=== PATIENT | female | born 1950 | race Caucasian/White ===

== ENCOUNTER 2022-11-02 08:40 | Outpatient (CLI) | payer OTHER, SELFPAY | END 2022-11-02 08:41 | disposition home or self-care (01) | PROVIDERS: PCP Internal Medicine; Referring Provider Internal Medicine; Visit Provider Internal Medicine | DX: E78.5 Hyperlipidemia, unspecified (principal) | CPT/HCPCS: 80053; 80061 ==

== ENCOUNTER 2024-06-18 08:48 | Outpatient (CLI) | payer OTHER, SELFPAY | END 2024-06-18 08:49 | disposition home or self-care (01) | PROVIDERS: PCP Internal Medicine; Visit Provider Family Medicine | DX: R30.0 Dysuria (principal); E78.5 Hyperlipidemia, unspecified; I10 Essential (primary) hypertension; E11.9 Type 2 diabetes mellitus without complications; Z13.29 Encounter for screening for other suspected endocrine disorder | CPT/HCPCS: 80048; 80061; 84443; 87086 ==

== ENCOUNTER 2024-07-20 09:34 | Emergency (ER) | payer OTHER, SELFPAY ==
[2024-07-20 09:37] VITALS: BP 161/103; PULSE 108; RESP 18; TEMP 36.4; O2SAT 93; BMI 28.3
[2024-07-20 10:01] LABS: Appearance Urine Slightly Cloudy (Clear); Bilirubin Urine Negative (Negative); Blood Urine 2+ (Negative); Color Urine Yellow (Yellow); Glucose Urine Negative (Negative); Ketones Urine Negative (Negative); Leukocyte Esterase Urine 2+ (Negative); Nitrite Urine Negative (Negative); Protein Urine Trace (Negative); Urobilinogen Urine 0.2 (0.2-1.0)
[2024-07-20 10:13] LABS: Amorphous Sediment Urine Moderate; Bacteria Urine Moderate; Squamous Epithelial Cell Urine Moderate (None-Few)
--- NOTE | 2024-07-20 11:06 | ED_ITS ---
HPI - General Adult General Date Seen: 07/20/24 Chief complaint: Abdominal Pain Stated complaint: kidney stone? UTI? Yeast infection? Time Seen by Provider: 07/20/24 11:06 History of Present Illness HPI narrative: 74 year old female presenting to the ER today with abdominal pain and nausea. She was awoken about 3:00 a.m. this morning with right lower quadrant abdominal pain and was nauseous. Similar to previous kidney stones. She was also recently treated for either a urinary tract infection and yeast infection. Per medical record she was seen in the primary care clinic on 06/18. Per those notes ... She had concern for possible UTI. She also has a history of kidney cancer and had a nephrectomy in 2018. She has type 2 diabetes not currently on meds. History of high cholesterol. History of hypertension. Urinalysis showed 10-25 WBC. Treated with Bactrim b.i.d. for 7 days. Urine culture grew mixed jeff. She says her vaginal itching never really got better on the antibiotics. About 3 days ago she went to the pharmacy and bought some over counter Monistat cream and has been using that. She says finally her vaginal itching is getting better. She still has some urgency to urinate but no other dysuria, suprapubic pain She was awoken about 3:00 a.m. this morning with a new pain from her right flank down to her right lower quadrant of her abdomen. It is now associated with inability to urinate. She has not noticed any recent hematuria. No fever chills. No nausea or vomiting. She took ibuprofen this morning for the pain and is now much better. She says the pain currently is tolerable and she does not wanting more pain medication. She is worried because her symptoms are reminiscent of when she passed a kidney stone in 2018. She also has a history of kidney cancer and is status post a left nephrectomy (done by urology [facility]). In her surveillance follow-up CT scans urologists have mention that she has stones within the right kidney. She has not symptomaticly passed a stone since 2018. Related Data Previous Rx's ?Medication ?Instructions ?Recorded simvastatin 10 mg tablet 10 mg PO QHS Hyperlipidemia #90 12/26/23 tabs atenolol 50 mg tablet 50 mg PO BID #120 tabs 12/28/23 amlodipine 5 mg tablet 5 mg PO QDAY #30 tabs 06/18/24 fluconazole 150 mg tablet 150 mg PO Q3D 2 doses #2 tabs 06/18/24 rosuvastatin 10 mg tablet 10 mg PO QDAY #90 tabs 06/19/24 sulfamethoxazole 800 1 tab PO BID #14 tabs 06/19/24 mg-trimethoprim 160 mg tablet (Bactrim DS) Allergies Allergy/AdvReac Type Severity Reaction Status Date / Time No Known Drug Allergies Allergy Verified 06/18/24 08:13 [facility] Medical History (Updated 07/20/24 @ 12:39 by Manny Liang MD) Renal cell carcinoma (2018) ?C64.9 - Malignant neoplasm of unspecified kidney, except renal pelvis (ICD- 10) Counseling regarding advanced directives (10/15/17) ?Z71.89 - Other specified counseling (ICD-10) Sepsis due to urinary tract infection ?A41.9 - Sepsis, unspecified organism (ICD-10) ?N39.0 - Urinary tract infection, site not specified (ICD-10) History of renal calculi ?Z87.442 - Personal history of urinary calculi (ICD-10) Calculus of ureter ?N20.1 - Calculus of ureter (ICD-10) Surgical History (Updated 06/19/24 @ 17:51 by Rajinder Alexander MD) History of cholecystectomy (2017) ?Z90.49 - Acquired absence of other specified parts of digestive tract (ICD-10) Status post laparoscopic Alicia fundoplication ?Z98.890 - Other specified postprocedural states (ICD-10) Status post hysterectomy (1997) ?Z90.710 - Acquired absence of both cervix and uterus (ICD-10) History of tonsillectomy and adenoidectomy (1959) ?Z90.89 - Acquired absence of other organs (ICD-10) History of nephrectomy (2018) ?Z90.5 - Acquired absence of kidney (ICD-10) Social History Narrative: Exercising involving walking- 1M 3x/week , 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 Alert. Conversant. Non toxic. HENT: Head: Atraumatic. Nose: Nose normal. Mouth/Throat: Oral mucosa is clear and moist. no trismus. Pharynx normal. Eyes: Conjunctivae normal. EOM normal. Pupils equal, round, and reactive to light. No scleral icterus. Neck: Normal range of motion. Neck supple. No tracheal deviation present. Cardiovascular: Normal rate, regular rhythm. No gallop. No friction rub. No murmur heard. Symmetric radial artery pulses Pulmonary/Chest: Effort normal. No stridor. No respiratory distress. No wheezes. No rales. No rhonchi . No tenderness. Abdominal: Soft. Bowel sounds normal. Protuberant due to body habitus but no distension. No mass. Mild right mid and upper tenderness. No CVA tenderness. No rebound. No guarding. Musculoskeletal: RUE: Normal range of motion. No tenderness. No deformity LUE: Normal range of motion. No tenderness. No deformity RLE: Normal range of motion. No edema. No tenderness. No deformity LLE: Normal range of motion. No edema. No tenderness. No deformity Neurological: Alert and oriented to person, place, and time. Normal strength. CN II-VII intact. No sensory deficit. GCS eye subscore is 4. GCS verbal subscore is 5. GCS motor subscore is 6. Normal coordination Skin: Skin is warm and dry. No rash noted. No pallor. Normal capillary refill. Psychiatric: Normal mood. Normal affect. Const: Vital Signs, click to edit/add: Vital Signs - 24 hr 07/20/24 09:37 Temperature 97.5 F L Pulse Rate [Pulse Oximeter] 108 H Respiratory Rate 18 Blood Pressure [Ri ght Upper Arm] 161/103 H Pulse Oximetry 93 Oxygen Delivery Me thod Room Air Course Course ED Course: History and physical performed. Patient comfortable after taking ibuprofen at home. Politely declined pain meds. Reevaluation(s) Reevaluation #1: Recheck-endorsing increasing right flank pain. Wants pain medications. [place] ordered. Reevaluation #2: Recheck-patient resting more comfortably. CT scan back showing a 10 mils stone obstructing her solitary right kidney. Consult to [facility] placed Reevaluation #3: Recheck-I was notified through the [place] transfer center that the patient is accepted by Urology at [place], Dr. Godinez and will be going to the ER at [facility]. She will check into the ER there to be seen by Urology. Accepting ER doc is Dr. Vieira Vital Signs Vital signs: Initial Vital Signs Temperature 97.5 F L 07/20/24 09:37 Temperature Source Temporal Artery Scan 07/20/24 09:37 Pulse Rate 108 H 07/20/24 09:37 Respiratory Rate 18 07/20/24 09:37 Blood Pressure 161/103 H 07/20/24 09:37 Blood Pressure Mean 122 H 07/20/24 09:37 Blood Pressure Position Sitting 07/20/24 09:37 Pulse Oximetry 93 07/20/24 09:37 Oxygen Delivery Method Room Air 07/20/24 09:37 Vital Signs Temperature 97.5 F L 07/20/24 09:37 Pulse Rate 108 H 07/20/24 09:37 Respiratory Rate 18 07/20/24 09:37 Blood Pressure 161/103 H 07/20/24 09:37 Pulse Oximetry 93 07/20/24 09:37 Oxygen Delivery Method Room Air 07/20/24 09:37 Temperature 97.5 F L 07/20/24 09:37 Pulse Rate 108 H 07/20/24 09:37 Respiratory Rate 18 07/20/24 09:37 Blood Pressure 161/103 H 07/20/24 09:37 Pulse Oximetry 93 07/20/24 09:37 Oxygen Delivery Method Room Air 07/20/24 09:37 Medications Administered Medications: Discontinued Medications Generic Name Dose Route Start Last Admin Trade Name Freq PRN Reason Stop Dose Admin Hydrocodone Bitart/Acetaminophen 1 tab 07/20/24 12:09 07/20/24 12:15 Hydrocodone-Acetamin 5-325 Mg 1 Tab PO 07/20/24 12:10 1 tab ONCE ONE Administration Ondansetron HCl 4 mg 07/20/24 12:09 07/20/24 12:15 Ondansetron Odt 4 Mg Tab PO 07/20/24 12:10 4 mg ONCE ONE Administration Medical Decision Making MDM Narrative Medical decision making narrative: Very pleasant 74-year-old female with a history of left nephrectomy 6 years ago for kidney cancer presenting to the ER today with right flank and right lower quadrant abdominal pain. Differential is broad including appendicitis, kidney stone, pyelonephritis, right-sided colitis or diverticulitis. She is status post cholecystectomy. Laboratory she workup shows a white count of 13. LFTs are mildly abnormal with AST of 53 and ALT of 61. Alk-phos is 119 and total bilirubin is normal. Lipase is normal. Kidney function does show a creatinine of 1.4 which is up from baseline of 0.7. Urinalysis shows scant hematuria with 2-5 red cells. Also small amount of pyuria with 5-10 white cells. However urine sample is contaminated with squamous epithelial cells. However, with obstructing stone, leukocytosis, will start IV rocephin. CT scan does demonstrate an obstructing 10 mm stone in the right ureter with associated hydronephrosis. With patient does have an elevated creatinine-baseline 0.7, up to 1.4 today. With an elevated white count and an equivocal urine consider possible UTI although she is not febrile. At this point no of clear evidence for urosepsis. We are also concerned about this patient because she has an obstructing stone in her solitary kidney and is at risk for renal failure. Consultation with her Urology through the [facility] , and she is accepted for transfer directly to the ER at [facility]. She patient was wanting to transfer by private car with her . At this point she is hemodynamically stable and pain is controlled so I think transfer by private car is reasonable. Discussed that she needs to remain NPO and go directly to the [facility] to be evaluated through the ER with Urology consultation Lab Data Labs: Lab Results 07/20/24 07/20/24 Range/Units 09:54 11:50 WBC 13.15 H (4.50-11.00) K/uL RBC 4.76 (4.00-5.20) m/uL Hgb 14.9 (12.0-16.0) gm/dL Hct 44.1 (33.0-51.0) % MCV 93 (80-100) fL MCH 31 (26-34) pg MCHC 34 (32-36) gm/dL RDW Coeff of Eli 12.7 (11.5-15.5) % Plt Count 256 (140-440) K/uL Neut % (Auto) 88.2 H (42.0-72.0) % Lymph % (Auto) 4.6 L (20-44) % [place] % (Auto) 6.5 (0.0-11.0) % Eos % (Auto) 0.0 (0.0-7.0) % Baso % (Auto) 0.2 (0.0-3.0) % Neut # (Auto) 11.60 H (1.7-7.0) K/uL Lymph # (Auto) 0.60 L (0.90-2.90) K/uL [place] # (Auto) 0.90 (0.00-0.90) K/UL Eos # (Auto) 0.00 (0.00-0.50) K/uL Baso # (Auto) 0.00 (0.00-0.30) K/uL Abs Immat Gran (auto) 0.10 (0.00-0.30) K/uL Imm/Tot Granulo (auto) 0.5 % Sodium 134 L (135-149) mmol/L Potassium 4.3 (3.6-5.1) mmol/L Chloride 101 (96-114) mmol/L Carbon Dioxide 22 (20-32) mmol/L Anion Gap 11 (7-15) mEq/L BUN 25 (7-30) mg/dL Creatinine 1.4 (0.5-1.5) mg/dL Estimated Creat Clear 28.72 Estimated GFR 39 ml/min Glucose 278 H (60-115) mg/dL Calcium 9.6 (8.4-10.6) mg/dL Total Bilirubin 0.3 (0.1-1.5) mg/dL AST 53 H (12-35) U/L ALT 61 H (4-35) U/L Alkaline Phosphatase 119 (40-150) U/L Total Protein 7.7 (6.0-8.3) g/dL Albumin 4.5 (3.3-5.0) g/dL Lipase 177 (23-300) U/L Urine Color Yellow (Yellow) Urine Appearance Slightly Cloudy A (Clear) Urine pH 6.0 (5.0-8.5) Ur Specific [place] 1.010 (1.000-1.030) Urine Protein Trace A (Negative) Urine Glucose (UA) Negative (Negative) Urine Ketones Negative (Negative) Urine Blood 2+ A (Negative) Urine Nitrite Negative (Negative) Urine Bilirubin Negative (Negative) Urine Urobilinogen 0.2 (0.2-1.0) Ur Leukocyte Esterase 2+ A (Negative) Urine RBC 2-5 A (0-2) Urine WBC 5-10 A (0-5) Ur Squamous Epith Cells Moderate A (None-Few) Amorphous Sediment Moderate A (None) Urine Bacteria Moderate A (None) Imaging Data CT scan - abdomen: Attestation: I have reviewed the pertinent imaging results. Radiologist's impression: IMPRESSION: 1. Severe right-sided hydronephrosis to the level of the proximal ureter where there is an obstructing 10 mm urinary calculus. 2. Status post total left nephrectomy. 3. Dense coronary arterial calcifications. Advise correlation with ASCVD evaluation. 4. Small hiatal hernia. Discharge Plan Discharge Clinical Impression: Kidney stone, Acquired solitary kidney Prescriptions: No Action amlodipine 5 mg tablet 5 mg PO QDAY Qty: 30 3RF fluconazole 150 mg tablet 150 mg PO Q3D Qty: 2 0RF sulfamethoxazole-trimethoprim [Bactrim DS] 800-160 mg tablet 1 tab PO BID Qty: 14 0RF rosuvastatin 10 mg tablet 10 mg PO QDAY Qty: 90 3RF simvastatin 10 mg tablet 10 mg PO QHS Qty: 90 0RF atenolol 50 mg tablet 50 mg PO BID Qty: 120 3RF Stand Alone Forms: MyHealth Info Instructions
--- NOTE | 2024-07-20 11:28 | CRLHL7_ITS ---
For Patients: As a result of the Century Cures Act, medical imaging exams and procedure reports are released immediately into your electronic medical record. You may view this report before your referring provider. If you have questions, please contact your health care provider. INDICATION: Flank pain. Evaluate for kidney stone. TECHNIQUE: Multiplanar CT examination of the abdomen and pelvis was performed without the use of intravenous contrast, renal stone protocol. COMPARISON: CT abdomen pelvis 01/03/2024. FINDINGS: Limited evaluation of the soft tissue organs without the use of intravenous contrast. Lower chest: No focal consolidation. Normal heart size. No pleural effusions or pneumothorax. Dense coronary arterial calcifications. Linear bandlike opacification in the lungs bilaterally, likely subsegmental and/or scarring. Small hiatal hernia. Liver: Simple appearing cysts. Gallbladder: Cholecystectomy. Biliary: Unremarkable. Pancreas: Within normal limits. Spleen: Unremarkable. Adrenal glands: Unremarkable. Renal/ureters/bladder: The right kidney is moderately edematous with severe hydroureteronephrosis level proximal ureter where there is a 10 mm obstructing urinary calculus. There is moderate right perinephric fat stranding. The left kidney is surgically absent. Limited evaluation for renal masses without the use of intravenous contrast. The bladder is within normal limits. Pelvis: Hysterectomy. No adnexal masses. Gastrointestinal: No bowel wall thickening or bowel obstruction. Normal appendix. Colonic diverticulosis without colonic wall thickening to suggest acute diverticulitis. Mild colonic stool burden. Vasculature: No aortic aneurysm. Severe aortoiliac atherosclerotic calcifications. Lymph nodes: No pathologic lymphadenopathy by size criteria. Peritoneum: No free fluid or pneumoperitoneum. No drainable fluid collections. Abdominal wall/soft tissues: Unremarkable. Bones: No acute osseous abnormalities. Multilevel degenerative changes of the thoracolumbar spine. IMPRESSION: 1. Severe right-sided hydronephrosis to the level of the proximal ureter where there is an obstructing 10 mm urinary calculus. 2. Status post total left nephrectomy. 3. Dense coronary arterial calcifications. Advise correlation with ASCVD evaluation. 4. Small hiatal hernia. Please note that all CT scans at this facility use dose modulation, iterative reconstruction, and/or weight-based dosing when appropriate to reduce radiation dose to as low as reasonably achievable. Dictated by Desean Chapa MD @ 07/20/2024 12:10:33 PM (Electronically Signed)
[2024-07-20 11:59] LABS: Basophils Percent Auto 0.2 % (0.0-3.0); Hematocrit 44.1 % (33.0-51.0); Hemoglobin* 14.9 gm/dL (12.0-16.0); Immature Granulocytes Pct Auto 0.5 %; Lymphocytes Percent Auto 4.6 % (20-44); Mean Corpuscular HGB Conc 34 gm/dL (32-36); Mean Corpuscular Hemoglobin 31 pg (26-34); Mean Corpuscular Volume 93 fL (80-100); Monocytes Percent Auto 6.5 % (0.0-11.0); Neutrophils Percent Auto 88.2 % (42.0-72.0); Platelet Count* 256 K/uL (140-440); RDW Coefficient of Variation % 12.7 % (11.5-15.5); Red Blood Count 4.76 m/uL (4.00-5.20); White Blood Count* 13.15 K/uL (4.50-11.00)
[2024-07-20 12:07] LABS: Slide Review Reflex No
[2024-07-20 12:09] LABS: Albumin* 4.5 g/dL (3.3-5.0)
[2024-07-20 12:10] LABS: Chloride* 101 mmol/L (96-114); Potassium* 4.3 mmol/L (3.6-5.1); Sodium* 134 mmol/L (135-149)
[2024-07-20 12:12] LABS: Alkaline Phosphatase* 119 U/L (40-150); Anion Gap 11 mEq/L (7-15); Aspartate Amino Transferase* 53 U/L (12-35); Bilirubin Total* 0.3 mg/dL (0.1-1.5); Carbon Dioxide* 22 mmol/L (20-32); Creatinine* 1.4 mg/dL (0.5-1.5); Est. Creatinine Clearance* 28.72; Estimated Glomerular Filt Rate 39 ml/min; Total Protein* 7.7 g/dL (6.0-8.3)
[2024-07-20 12:13] LABS: Alanine Aminotransferase* 61 U/L (4-35); Blood Urea Nitrogen* 25 mg/dL (7-30); Calcium* 9.6 mg/dL (8.4-10.6); Glucose* 278 mg/dL (60-115); Lipase* 177 U/L (23-300)
[2024-07-20] MEDS: HYDROCODONE-ACETAMIN 5-325 MG 1 TAB PO (12:15)
[2024-07-20] MEDS: ONDANSETRON ODT 4 MG TAB PO (12:15)
[2024-07-20] MEDS: cefTRIAXone 1 GM in 0.9 % SODIUM CHLORIDE Mini-bag 100 ML IVPB (13:43)
== END 2024-07-20 13:53 | disposition short-term general hospital (02) ==
PROVIDERS: Emergency Provider Emergency Medicine; PCP Internal Medicine
DX: N13.2 Hydronephrosis with renal and ureteral calculous obstruction (principal)
CPT/HCPCS: 36415; 74176; 80053; 81001; 83690; 85025; 87086; 96365; 99284; A9270; J0696